=== PATIENT | male | born 1935 | race Caucasian/White ===

== ENCOUNTER 2016-12-17 14:47 | Observation (INO) ==
[2016-12-17] MEDS ORDERED: Bupivacaine/EPI 1:200k 0.5%PF 10 ML VIAL ONE ×2 (17:04→19:01)
[2016-12-17] MEDS ORDERED: Lidocaine/EPI 1:100k 1% 20 ML VIAL ONE (17:04)
[2016-12-17] MEDS ORDERED: Lidocaine 1% 20 ML MDV ONE (17:04)
--- NOTE | 2016-12-17 17:09 | Anesthesia Evaluation PreOp ---
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: Other (essential tremors) Other Medical History: Diabetes Type II Anesthesia History: No Prior Anesthetic Complications, Past Anesthesia Alcohol Use: none Drug use: none Medications and Allergies Aspirin [Adult Low Dose Aspirin EC] 81 mg PO DAILY 09/19/15 [History] Cyanocobalamin (Vitamin B-12) [Vitamin B-12] 1,000 mcg PO DAILY 09/19/15 [ History] Metformin [Glucophage] 500 mg PO BID 09/19/15 [History] Pravastatin Sodium [Pravachol] 40 mg PO HS 09/19/15 [History] Primidone [Mysoline] 100 mg PO BID 09/19/15 [History] Propranolol HCl [Innopran Xl] 120 mg PO DAILY 09/19/15 [History] Sertraline [Zoloft] 50 mg PO DAILY 09/19/15 [History] Carbidopa/Levodopa 25/100 [Sinemet 25/100] 1 tab PO TID 07/07/16 [History] Hydrocortisone [Proctozone-Hc] 1 appl RC BID PRN 07/07/16 [History] Allergies shellfish derived Allergy (Verified 12/17/16 15:51) Swelling of Lip/Tongue/Throat - Meds/Allergy Pre-op Review Medications Reviewed: Yes Allergies Reviewed: Yes Beta Blockers on Current Med List: Yes (for tremors) If Beta Blockers taken, Date/Time (Last Dose taken): 12/17/2016 at 0930 Anesthesia Results - Labs Laboratory Tests 07/07/16 07/09/16 07/09/16 10:35 05:49 05:49 WBC 6.8 Hgb Hct Plt Count 130 L PT 10.8 INR 1.0 Sodium 138 Potassium BUN 12 Creatinine 0.88 07/27/16 07/27/16 09:42 09:42 WBC Hgb 11.1 L Hct 33.2 L Plt Count PT INR Sodium Potassium 4.6 H BUN Creatinine - Imaging EKG: report reviewed (07/07/2016 SR) Anesthesia Exam Vital Signs/O2 Sat/Glucose, Most Recent Temp Pulse Resp BP Pulse Ox 97.7 F 60 16 184/83 94 12/17/16 15:45 12/17/16 15:45 12/17/16 15:45 12/17/16 15:45 12/17/16 15:45 Blood Glucose* 208 Height: 5'3''/ 1.6 m Weight: 195 lbs/88.451 kg NPO (# of Hours): 8 Pain Scale: 0 Pain Scale Used: Numeric (1 - 10) - HEENT Pupil (Motor): EOMI Mallampati: II Teeth: Edentulous Oral Opening: Greater than 3 - SWITCHMAN SUPERVISOR LOC: Oriented SWITCHMAN SUPERVISOR Motor: Normal RLE, Normal LLE, Normal Face, Deficit RUE (tremors), Deficit LUE (tremors,weakness) SWITCHMAN SUPERVISOR Sensory: Normal: RUE, RLE, LLE, Face, Deficit: LUE - Cardiac Rhythm: Regular Murmur: None - Pulmonary Breath Sounds: bilateral Clear Respiratory Effort: Symmetrical Anesthesia Assess/Plan ASA Score: 2 Modified [place] Scale for Level of Consciousness: Cooperative, oriented, and tranquil Anesthetic Plan: General Monitoring Plan: Standard Monitors Recovery Plan: PACU
[2016-12-17] MEDS ORDERED: EPHEDrine 50 MG/ML VIAL ONE (18:16)
[2016-12-17] MEDS ORDERED: Dexamethasone 4 MG/ML VIAL ONE (18:16)
[2016-12-17] MEDS ORDERED: Ondansetron 4 MG/2 ML VIAL ONE (18:16)
[2016-12-17] MEDS ORDERED: *HR* Succinylcholine 200 MG/10 ML VIAL IVP ONE (18:16)
[2016-12-17] MEDS ORDERED: *HR* Rocuronium Bromide 50 MG/5 ML VIAL ONE (18:16)
[2016-12-17] MEDS ORDERED: *HR* Propofol 200 MG/20 ML VIAL IVP ONE (18:16)
[2016-12-17] MEDS ORDERED: *HR* FentaNYL (PF) 100 MCG/2 ML VIAL ONE ×2 (18:16→18:17)
[2016-12-17] MEDS ORDERED: Lidocaine -MPF 2% 2 ML VIAL ONE (18:16)
[2016-12-17] MEDS ORDERED: *HR* Labetalol 100 MG/20 ML MDV IVP PRN (18:32)
[2016-12-17] MEDS ORDERED: Ondansetron 4 MG/2 ML VIAL IVP ONE (18:32)
[2016-12-17] MEDS ORDERED: *HR* HYDROmorphone (PF) 1 MG/ML SYRINGE IVP PRN ×2 (18:32→19:16)
[2016-12-17] MEDS ORDERED: Ringers Solution, Lactated 1,000 ML IVC SCH (18:45)
[2016-12-17] MEDS ORDERED: Naloxone 0.4 MG/ML INJ IVP PRN (19:16)
[2016-12-17] MEDS ORDERED: Ondansetron 4 MG/2 ML VIAL IVP PRN (19:16)
[2016-12-17] MEDS ORDERED: *HR* HYDROcodone/Acet 7.5/325 mg TABLET PO PRN (19:16)
--- NOTE | 2016-12-17 19:34 | Orthopedic Operative Note ---
Date of procedure: 12/17/16 Procedure: OPERATIVE REPORT DATE OF PROCEDURE: 12/17/2016 SURGEON: Brian Dowling MD PLANNING FEEDER(S): There were no assistants PREOPERATIVE DIAGNOSIS: Left transscaphoid perilunate dislocation with left carpal tunnel syndrome POSTOPERATIVE DIAGNOSIS: Left transscaphoid perilunate dislocation with left carpal tunnel syndrome PROCEDURE: Left proximal row carpectomy and left carpal tunnel release ANESTHESIA: General anesthesia PREOPERATIVE ANTIBIOTICS: 2 g of Ancef ESTIMATED BLOOD LOSS: 2 milliliters TOURNIQUET TIME: 60 minutes at 250 mmHg SPECIMENS: There were no specimens IMPLANTS: There were no implants LOCAL INJECTION: 0.5% bupivacaine with 1:200,000 epinephrine PREOPERATIVE NOTE AND INDICATIONS: Keyur is an 81-year-old male who sustained an injury 3 days ago which resulted in a left transscaphoid perilunate dislocation. He also had a history of 5-6 years of weakness and decreased dexterity in the left hand as well as thenar atrophy presumed to be related to chronic carpal tunnel syndrome. Treatment options in the office were discussed including reduction with scaphoid fixation versus acute proximal row carpectomy. After a thorough discussion the patient wished to proceed with the procedure that would provide the quickest recovery and the best likelihood of only needing one procedure. My recommendation was to proceed with a proximal row carpectomy and given the nature of the injury as well as what was felt to be a carpal tunnel syndrome the decision was made to proceed with carpal tunnel release as well. The surgical plan was discussed with the patient. The risks, benefits, alternatives, and potential complications of this procedure were discussed with the patient including injury to veins, arteries, nerves, tendons, ligaments, and bone. Also discussed were the risks of infection, bleeding, pain, blood clots, the possible need for a blood transfusion, the possible need for further procedures, heart attack, stroke, and . Also discussed was the risk of arthritis or chronic instability and the possible need to perform a fusion procedure in the future. All of this was explained in simple terms, and the patient verbalized understanding and wished to proceed. Consent was given to proceed with surgery. PROCEDURE: The patient was seen in the preoperative holding area where the identify and the consent were confirmed. The left wrist was marked. Final questions were answered. The patient was brought back to the operating room and placed supine on the operating room table. A huddle was performed with the patient and all vital surgical team members confirming patient identity, the correct procedure, and the correct operative site. Gen. anesthesia was administered. The left upper extremity was prepped and draped in the usual sterile fashion. A surgical time out was performed immediately preceding the incision with all personnel in the operating room to confirm patient identity, the correct operative site and extremity, correct radiographic studies, availability of appropriate surgical equipment, and agreement on the planned procedure. The C-arm was brought in and the dislocation was easily reducible under general anesthesia. The limb was exsanguinated and the tourniquet inflated. A volar incision was made and dissection proceeded through the subcutaneous tissue and palmar fascia. The transverse carpal ligament was identified and incised from distal to proximal including the last few centimeters of the distal antebrachial fascia. This did open wide after decompression. Attention was then directed dorsally where a dorsal longitudinal incision was made just ulnar to Hossein's tubercle. Dissection proceeded through the subcutaneous tissue and the interval between the second and fourth dorsal compartments was developed. The capsule was identified and sharply incised longitudinally exposing the wrist joint. The proximal scaphoid was identified and had no soft tissue attachments and was easily removed from the wound. The capitate cartilage was intact and in good condition. There was no arthritis on the distal portion of the distal radius. The ligamentous structures were then sharply elevated off the distal pole the scaphoid which was excised en bloc. The radioscaphocapitate ligament was felt to be intact. The lunate was identified and there was a complete lunotriquetral ligament rupture. The lunate was almost completely freely mobile with the exception of the radial lunate ligaments. The lunate was easily excised en bloc. Soft tissue was dissected off the triquetrum and this is also resected in 2 large fragments. The wound was copiously irrigated and the remaining cartilaginous surfaces of the radius and the capitate were in good condition. The capitate articulated nicely with the lunate facet of the radius. There was felt to be adequate stability. X- rays confirmed good reduction. The wounds were copiously irrigated and the dorsal capsular tissue was closed with interrupted 4-0 FiberWire stitches. The volar and dorsal incisions were closed with interrupted 4-0 nylon stitches. A total of 20 mL of the local was given to the incisions. A sterile dressing and sugar tong splint were placed. The instrument, sponge, and needle counts were correct after wound closure. POST OPERATIVE PLAN: Weight Bearing: Nonweightbearing to the left upper extremity. DVT Prophylaxis: Ambulation Activity: Avoid aggressive activities to the left upper extremity, Wound Care: Keep the splint clean, dry, and intact. Pain Control: [place] Follow Up: 10 days
--- NOTE | 2016-12-17 19:37 | Discharge Summary ---
Date of Encounter: 12/17/16 Time of Encounter: 19:34 - Discharge Diagnosis (1) Fracture of scaphoid bone of left wrist Priority: Primary Status: Acute Qualifiers: Qualified Code(s): S62.002A - Unspecified fracture of navicular [scaphoid] bone of left wrist, initial encounter for closed fracture - Discharge Medications Home Medications: Aspirin [Adult Low Dose Aspirin EC] 81 mg PO DAILY 09/19/15 [History] Cyanocobalamin (Vitamin B-12) [Vitamin B-12] 1,000 mcg PO DAILY 09/19/15 [ History] Metformin [Glucophage] 500 mg PO BID 09/19/15 [History] Pravastatin Sodium [Pravachol] 40 mg PO HS 09/19/15 [History] Primidone [Mysoline] 100 mg PO BID 09/19/15 [History] Propranolol HCl [Innopran Xl] 120 mg PO DAILY 09/19/15 [History] Sertraline [Zoloft] 50 mg PO DAILY 09/19/15 [History] Carbidopa/Levodopa 25/100 [Sinemet 25/100] 1 tab PO TID 07/07/16 [History] Hydrocortisone [Proctozone-Hc] 1 appl RC BID PRN 07/07/16 [History] Allergies/Adverse Reactions: Allergies shellfish derived Allergy (Verified 12/17/16 15:51) Swelling of Lip/Tongue/Throat Labs on day of discharge: Labs from last 24 hours 12/17/16 15:55 POC Glucose 208 H - Impressions ITS Impressions Fluoroscopy 12/17/16 17:55 IMPRESSION: Intraprocedural fluoroscopic spot images as above. See separate procedure report for more information. D/ / 12/17/2016 19:26:01 Chico Morin MD / linda Interpreting Provider: Chico Morin MD Wrist X-Ray 12/17/16 17:55 IMPRESSION: Intraprocedural fluoroscopic spot images as above. See separate procedure report for more information. D/ / 12/17/2016 19:26:01 Chico Morin MD / linda Interpreting Provider: Chico Morin MD Date of admission: 12/17/16 15:20 Primary care physician: Stoney Patel - Patient Status Disposition: Home, Self-Care - Discharge Instructions Follow Up With: Stoney Patel, DO [Primary Care Provider] - Additional Instructions: DISCHARGE INSTRUCTIONS Dr. Dowling DISCHARGE DIAGNOSIS/PROCEDURE Left proximal carpectomy and left carpal tunnel release PAIN AND SWELLING: The goal of pain medication is to reduce your pain and make you more comfortable. Pain medication may not completely relieve all discomfort. Control of swelling is an important part of pain control. To control swelling and pain: 1. Use a pillow to elevate the hand 10 to 14 inches above the heart level. 2. If your splint is positioned so that one or more of your fingers is free, then we encourage gentle movement of those fingers. If the splint blocks your motion, then we ask that you avoid motion of these fingers or hand. If the splint does not include the elbow, then we encourage you to bend and straighten your elbow 4 to 5 times per day to prevent stiffness. 3. Use ice packs over the affected area (on the soft side of the dressings is preferred - if there is one) for 10 minute intervals every hour while the hand is elevated. Be careful, however, to keep the dressing dry! 4. If you were given a sling, then wear the sling on when walking around for long periods of time. Otherwise, elevated as directed above. Continued use of the sling does not provide proper elevation of the extremity to prevent swelling. 5. The anesthesiologist may have given you a nerve block (an injection near your neck or shoulder) to numb your hand and arm. This is to help control your pain. Therefore, it is normal to experience some numbness and tingling in your arm and fingers up to approximately 18 hours after surgery. Your surgeon may have given a nerve block directly at the site of surgery which may also cause some numbness and tingling to the affected area. ACTIVITY: No aggressive activities with the left upper extremity WOUND CARE: Keep the wound clean, dry, and covered. The purpose of the dressing is to keep the surgical site protected and to promote healing. If you have a splint or a cast, it is designed to also help protect the surgical site. You may take a shower or bath with your dressing, splint, or cast in place, but you must keep it dry. One common way to do this is to place a bag over the area and seal with tape. If your dressing, splint, or cast becomes soaked, then phone our office as soon as possible. Unless otherwise instructed, do not remove your dressing or splint. There may be some bloody spotting on the dressing initially , and this is normal. Excessive bleeding that soaks the dressing must be reported to us. DRIVING: Do not drive while taking narcotic pain medications. DIET: Begin with clear liquids, and then increase your diet as you feel comfortable. MEDICATIONS: Pain: [place] Your prescribed pain medication contains Tylenol. You must be careful not to exceed 4,000 mg (4 g) of Tylenol (or generic equivalent), from all sources, within a single 24-hour period. Gradually wean to Tylenol (or generic equivalent) for pain. Over the counter ibuprofen can be taken as directed in addition to your prescribed pain medication unless otherwise stated by your doctor. DO NOT TAKE IBUPROFEN IF YOU HAVE A HISTORY OF STOMACH ULCERS OR ARE TAKING BLOOD THINNERS LIKE COUMADIN OR PLAVIX. FOLLOW-UP Follow-up with Dr. Dowling at the office 10 days from the surgery date for a post operative evaluation. Call the office at [phone] to schedule or confirm your appointment. WHEN TO CALL THE DOCTOR OR WHEN TO SEEK CARE BEFORE YOUR APPOINTMENT 1. Excess swelling or increased numbness not made better by elevating the hand and moving the fingers. 2. Uncontrolled pain. 3. A color change in your hand or fingers. 4. Worsening redness or drainage. 5. Fevers over 100.5 degrees F or 38.1 degrees C. 6. Any symptoms that bring concern to you. - Hospital Course Hospital course: Mr. De La Torre is a 81 year old male - Time Spent with Patient Total time spent providing and/or coordinating discharge services:
--- NOTE | 2016-12-17 20:05 | Anesthesia Evaluation Post Op ---
Date of Encounter: 12/17/16 Time of Encounter: 20:10 - Vital Signs Vital Signs: Vital Signs/O2 Sat/Glucose, Most Current Temp Pulse Resp BP Pulse Ox 12/17/16 19:50 98.9 F 75 18 200/95 97 12/17/16 19:40 62 20 216/97 97 12/17/16 19:30 62 18 204/101 96 12/17/16 19:20 99.6 F 60 18 191/107 94 - Lungs Lungs: Clear Ascult./Percussion - Airway Airway: Non-obstructed - Cardiovascular Regular Rate - Mental Status Mental Status: Alert & Oriented, Answers Appropriately - Pain Pain Scale: 0 - Nausea Vomiting Nausea Vomiting: Not Present - Hydration Hydration: NPO - Discharge PostOp Status: Transfer Patient to floor
[2016-12-17] MEDS ORDERED: Propranolol LA (24 HR) 60 MG CAP.SA.24H PO SCH (20:45)
[2016-12-17] MEDS ORDERED: Primidone 50 MG TABLET PO SCH (21:00)
[2016-12-17 23:15] VITALS: BP 163/80
== END 2016-12-17 23:20 | disposition home or self-care (01) ==
LOC: 3NENU
PROVIDERS: ADMIT Orthopaedic Surgery Hand Surgery; ATTEND Orthopaedic Surgery Hand Surgery

== ENCOUNTER 2019-11-09 09:40 | Inpatient (IN) ==
[2019-11-09] MEDS ORDERED: Azithromycin 500 MG in D5% in Water 250 ML IVPB ONE (10:01)
[2019-11-09] MEDS ORDERED: methylPREDNISolone 125 MG/2 ML VIAL IVP ONE (10:01)
[2019-11-09] MEDS ORDERED: cefTRIAXone 1,000 MG in Water for inj. (sterile) 10 ML IVP ONE (10:01)
[2019-11-09 10:17] LABS: Basophils # 0.1 K/mcL (0.0-0.2); Basophils % 0.4 %; Eosinophils % 0.2 %; Hematocrit 34.8 % (37.5-50.1); Hemoglobin 11.3 g/dL (12.9-16.9); Immature Granulocytes % 1.8 % (0-4); Lymphocytes # 1.5 K/mcL (0.6-4.6); Lymphocytes % 11.5 %; Mean Corpuscular HGB Conc 32.5 g/dL (31.6-35.5); Mean Corpuscular Hemoglobin 31.4 pg (28.0-33.3); Mean Corpuscular Volume 96.7 fL (83.0-100.0); Mean Platelet Volume 11.3 fL (9.4-12.4); Monocytes # 0.9 K/mcL (0.0-1.3); Monocytes % 6.5 %; Neutrophils # 10.4 K/mcL (1.6-8.9); Platelet Count 162 K/mcL (140-400); Red Cell Distribution Width 15.9 % (11.5-14.5); Segmented Neutrophils % 79.6 %; White Blood Count 13.1 K/mcL (4.3-11.1)
[2019-11-09 10:27] LABS: INR 2.2; Prothrombin Time 24.9 Seconds (9.4-12.1)
[2019-11-09 10:30] LABS: Activated Partial Thrombo Time 29.6 Seconds (26.0-36.0)
[2019-11-09 10:33] LABS: Alanine Aminotransferase 76 Units/L (7-52); Albumin 4.2 g/dL (3.5-5.7); Albumin/Globulin Ratio 1.5 (1.1-2.2); Alkaline Phosphatase 82 Units/L (34-104); Aspartate Amino Transferase 76 Units/L (13-39); BUN/Creatinine Ratio 18 (6-26); Bilirubin,Total 1.1 mg/dL (0.3-1.0); Blood Urea Nitrogen 18 mg/dL (8-23); Carbon Dioxide 23 mEq/L (23-29); Chloride 100 mEq/L (98-107); Globulin 2.8 g/dL (2.4-3.5); Glucose 363 mg/dL (70-105); Osmolality,Calculated 293 (280-300); Potassium 5.4 mEq/L (3.5-5.1); Sodium 133 mEq/L (136-145); eGFR For African Americans > 60 (> 60); eGFR For Non-African Americans > 60 (> 60)
[2019-11-09 10:43] LABS: Bilirubin,Urine Negative (Negative); Blood,Urine Trace (Negative); Clarity,Urine Cloudy (Clear); Color,Urine Yellow (Yellow); Glucose,Urine (UA) >=1000 mg/dL (Normal); Ketones,Urine 15 mg/dL (Negative); Leukocyte Esterase,Urine Negative (Negative); Nitrite,Urine Negative (Negative); Protein,Urine 100 mg/dL (Neg-Trace); Specific Gravity,Urine 1.028 (1.010-1.025); Urobilinogen,Urine Normal (Normal)
[2019-11-09 10:45] LABS: Bacteria,Urine None Seen per hpf (None-Few); Hyaline Casts,Urine Few per lpf (None-Few); RBC,Urine 0-3 per hpf (0-3); Squamous Epithelial Cell,Urine Many per lpf (None-Few); WBC,Urine 0-3 per hpf (0-3)
[2019-11-09 10:46] LABS: Troponin I 0.04 ng/mL (< 0.04)
[2019-11-09] MEDS ORDERED: Ipratropium/Albuterol Neb 3 ML IH ONE (10:56)
[2019-11-09] MEDS ORDERED: Naloxone 0.4 MG/ML INJ IVP PRN (11:39)
[2019-11-09] MEDS ORDERED: Ipratropium/Albuterol Neb 3 ML IH PRN (12:37)
[2019-11-09] MEDS: Propranolol LA (24 HR) 60 MG CAP.SA.24H PO SCH (13:23)
[2019-11-09] MEDS: Ipratropium/Albuterol Neb 3 ML IH SCH ×2 (15:26→22:09)
[2019-11-09 15:31] LABS: BUN/Creatinine Ratio 20 (6-26); Blood Urea Nitrogen 19 mg/dL (8-23); Calcium 9.1 mg/dL (8.6-10.3); Carbon Dioxide 23 mEq/L (23-29); Chloride 102 mEq/L (98-107); Glucose 371 mg/dL (70-105); Osmolality,Calculated 293 (280-300); Potassium 4.5 mEq/L (3.5-5.1); Sodium 133 mEq/L (136-145); eGFR For African Americans > 60 (> 60); eGFR For Non-African Americans > 60 (> 60)
[2019-11-09] MEDS: Insulin LISPRO 300 UNITS/3 ML VIAL SQ SCH (16:27)
[2019-11-09] MEDS: Carbidopa/Levodopa 25/100 TABLET PO SCH ×2 (16:27→20:23)
[2019-11-09] MEDS ORDERED: Ringers Solution, Lactated 1,000 ML IVC SCH (18:30)
[2019-11-09] MEDS ORDERED: Insulin LISPRO 300 UNITS/3 ML VIAL SQ SCH (21:00)
[2019-11-09] MEDS: MethylPREDNISolone 40 MG/ML VIAL IVP SCH (23:00)
[2019-11-09 23:51] LABS: Adenovirus Not Detected (Not Detect); Bordetella Pertussis Not Detected (Not Detect); Chlamydophila pneumoniae Not Detected (Not Detect); Coronavirus 229E Not Detected (Not Detect); Coronavirus HKU1 Not Detected (Not Detect); Coronavirus NL63 Not Detected (Not Detect); Coronavirus OC43 Not Detected (Not Detect); Human Metapneumovirus Not Detected (Not Detect); Human Rhinovirus/Enterovirus Not Detected (Not Detect); Influenza A Subtype 2009 H1 DETECTED (Not Detect); Influenza B Not Detected (Not Detect); Mycoplasma pneumoniae Not Detected (Not Detect); Parainfluenza Virus 1 Not Detected (Not Detect); Parainfluenza Virus 2 Not Detected (Not Detect); Parainfluenza Virus 3 Not Detected (Not Detect); Parainfluenza Virus 4 Not Detected (Not Detect); Respiratory Syncytial Virus Not Detected (Not Detect)
[2019-11-10] MEDS: Ipratropium/Albuterol Neb 3 ML IH SCH ×2 (03:45→10:25)
[2019-11-10 05:49] LABS: Basophils % 0.1 %; Hematocrit 31.9 % (37.5-50.1); Hemoglobin 10.7 g/dL (12.9-16.9); Immature Granulocytes % 1.1 % (0-4); Lymphocytes # 1.2 K/mcL (0.6-4.6); Lymphocytes % 13.8 %; Mean Corpuscular HGB Conc 33.5 g/dL (31.6-35.5); Mean Corpuscular Hemoglobin 32.2 pg (28.0-33.3); Mean Corpuscular Volume 96.1 fL (83.0-100.0); Mean Platelet Volume 11.5 fL (9.4-12.4); Monocytes # 0.4 K/mcL (0.0-1.3); Monocytes % 4.5 %; Neutrophils # 6.8 K/mcL (1.6-8.9); Platelet Count 119 K/mcL (140-400); Red Blood Count 3.32 M/mcL (4.19-5.50); Red Cell Distribution Width 15.9 % (11.5-14.5); Segmented Neutrophils % 80.5 %; White Blood Count 8.5 K/mcL (4.3-11.1)
[2019-11-10 05:52] LABS: Estimated Average Glucose 194 mg/dl
[2019-11-10 06:11] LABS: Alanine Aminotransferase 14 Units/L (7-52); Albumin 3.9 g/dL (3.5-5.7); Albumin/Globulin Ratio 1.4 (1.1-2.2); Alkaline Phosphatase 64 Units/L (34-104); Aspartate Amino Transferase 53 Units/L (13-39); BUN/Creatinine Ratio 26 (6-26); Bilirubin,Total 0.6 mg/dL (0.3-1.0); Blood Urea Nitrogen 21 mg/dL (8-23); Calcium 8.9 mg/dL (8.6-10.3); Carbon Dioxide 23 mEq/L (23-29); Chloride 103 mEq/L (98-107); Globulin 2.7 g/dL (2.4-3.5); Glucose 211 mg/dL (70-105); Osmolality,Calculated 289 (280-300); Potassium 4.4 mEq/L (3.5-5.1); Sodium 135 mEq/L (136-145); Total Protein 6.6 g/dL (6.4-8.9); eGFR For African Americans > 60 (> 60); eGFR For Non-African Americans > 60 (> 60)
[2019-11-10] MEDS ORDERED: Aspirin Enteric Coated 81 MG Tablet PO SCH (09:00)
[2019-11-10] MEDS ORDERED: cefTRIAXone 1,000 MG in Water for inj. (sterile) 10 ML IVP SCH (09:00)
[2019-11-10] MEDS: Carbidopa/Levodopa 25/100 TABLET PO SCH ×3 (09:06→21:59)
[2019-11-10] MEDS: Propranolol LA (24 HR) 60 MG CAP.SA.24H PO SCH (09:06)
[2019-11-10] MEDS: MethylPREDNISolone 40 MG/ML VIAL IVP SCH (09:09)
[2019-11-10] MEDS: Azithromycin 500 MG in D5% in Water 250 ML IVPB SCH (09:10)
[2019-11-10] MEDS: Insulin LISPRO 300 UNITS/3 ML VIAL SQ SCH ×3 (09:13→17:49)
[2019-11-10] MEDS ORDERED: D5% in Water 1,000 ML IVC PRN (12:16)
[2019-11-10] MEDS ORDERED: *HR* Dextrose 50 % in Water (Syg) 50 ML SYRINGE IVP PRN (12:16)
[2019-11-10] MEDS ORDERED: Dextrose Gel 15 GM/37.5 ML TUBE PO PRN ×2 (12:16)
[2019-11-10] MEDS: Insulin DETEMIR 100 UNIT/ML X5UNITS SQ SCH (13:07)
[2019-11-10 13:29] LABS: INR 1.7; Prothrombin Time 18.8 Seconds (9.4-12.1)
[2019-11-10] MEDS ORDERED: *HR* Warfarin 2.5 MG TABLET PO ONE (18:00)
[2019-11-10] MEDS ORDERED: Warfarin perPT PO PRN (18:00)
[2019-11-10] MEDS ORDERED: Insulin DETEMIR 100 UNIT/ML X5UNITS SQ ONE (18:08)
[2019-11-10] MEDS: Primidone 50 MG TABLET PO SCH (21:58)
[2019-11-11 05:34] LABS: INR 1.4; Prothrombin Time 15.9 Seconds (9.4-12.1)
[2019-11-11 05:46] LABS: Hemoglobin 11.2 g/dL (12.9-16.9); Red Cell Distribution Width 16.1 % (11.5-14.5)
[2019-11-11 05:48] LABS: Basophils % 0.2 %; Eosinophils % 0.4 %; Hematocrit 35.6 % (37.5-50.1); Immature Granulocytes % 0.9 % (0-4); Immature Platelets 9.2 % (1.1-6.1); Lymphocytes # 2.2 K/mcL (0.6-4.6); Lymphocytes % 22.3 %; Mean Corpuscular HGB Conc 31.5 g/dL (31.6-35.5); Mean Corpuscular Hemoglobin 30.8 pg (28.0-33.3); Mean Corpuscular Volume 97.8 fL (83.0-100.0); Mean Platelet Volume 11.7 fL (9.4-12.4); Monocytes # 0.7 K/mcL (0.0-1.3); Monocytes % 6.7 %; Neutrophils # 6.8 K/mcL (1.6-8.9); Platelet Count 138 K/mcL (140-400); Red Blood Count 3.64 M/mcL (4.19-5.50); Segmented Neutrophils % 69.5 %; White Blood Count 9.8 K/mcL (4.3-11.1)
[2019-11-11 06:00] LABS: BUN/Creatinine Ratio 31 (6-26); Blood Urea Nitrogen 27 mg/dL (8-23); Carbon Dioxide 23 mEq/L (23-29); Chloride 104 mEq/L (98-107); Glucose 97 mg/dL (70-105); Osmolality,Calculated 289 (280-300); Sodium 137 mEq/L (136-145); eGFR For African Americans > 60 (> 60); eGFR For Non-African Americans > 60 (> 60)
[2019-11-11] MEDS: Insulin LISPRO 300 UNITS/3 ML VIAL SQ SCH ×3 (07:26→16:38)
[2019-11-11] MEDS: predniSONE 20 MG TABLET PO SCH (07:50)
[2019-11-11] MEDS: Propranolol LA (24 HR) 60 MG CAP.SA.24H PO SCH (07:50)
[2019-11-11] MEDS: Primidone 50 MG TABLET PO SCH ×2 (07:50→19:33)
[2019-11-11] MEDS: Cyanocobalamin (B-12) 1,000 MCG TABLET PO SCH (07:51)
[2019-11-11] MEDS: Azithromycin 500 MG in D5% in Water 250 ML IVPB SCH (07:51)
[2019-11-11] MEDS: Aspirin Enteric Coated 81 MG Tablet PO SCH (07:51)
[2019-11-11] MEDS: Carbidopa/Levodopa 25/100 TABLET PO SCH ×3 (07:51→19:33)
[2019-11-11] MEDS: Multivit/Ca/Min/Fe/FA 1 TAB TABLET PO SCH (07:51)
[2019-11-11] MEDS: Insulin DETEMIR 100 UNIT/ML X5UNITS SQ SCH (09:44)
[2019-11-11] MEDS ORDERED: *HR* Warfarin 2.5 MG TABLET PO ONE (18:00)
[2019-11-12 08:48] LABS: Basophils % 0.3 %; Eosinophils # 0.1 K/mcL (0.0-0.6); Eosinophils % 0.8 %; Hematocrit 33.6 % (37.5-50.1); Hemoglobin 10.7 g/dL (12.9-16.9); Immature Granulocytes % 0.6 % (0-4); Lymphocytes # 2.1 K/mcL (0.6-4.6); Lymphocytes % 33.7 %; Mean Corpuscular HGB Conc 31.8 g/dL (31.6-35.5); Mean Corpuscular Hemoglobin 31.4 pg (28.0-33.3); Mean Corpuscular Volume 98.5 fL (83.0-100.0); Mean Platelet Volume 11.2 fL (9.4-12.4); Monocytes # 0.5 K/mcL (0.0-1.3); Monocytes % 8.7 %; Neutrophils # 3.5 K/mcL (1.6-8.9); Platelet Count 120 K/mcL (140-400); Red Blood Count 3.41 M/mcL (4.19-5.50); Red Cell Distribution Width 15.9 % (11.5-14.5); Segmented Neutrophils % 55.9 %; White Blood Count 6.2 K/mcL (4.3-11.1)
[2019-11-12 08:58] LABS: INR 1.4; Prothrombin Time 16.2 Seconds (9.4-12.1)
[2019-11-12] MEDS ORDERED: Azithromycin 250 MG TABLET PO SCH (09:00)
[2019-11-12 09:07] LABS: BUN/Creatinine Ratio 28 (6-26); Blood Urea Nitrogen 29 mg/dL (8-23); Calcium 8.4 mg/dL (8.6-10.3); Carbon Dioxide 26 mEq/L (23-29); Chloride 104 mEq/L (98-107); Glucose 162 mg/dL (70-105); Magnesium 1.9 mg/dL (1.6-2.6); Osmolality,Calculated 293 (280-300); Sodium 137 mEq/L (136-145); eGFR For African Americans > 60 (> 60); eGFR For Non-African Americans > 60 (> 60)
[2019-11-12] MEDS: Propranolol LA (24 HR) 60 MG CAP.SA.24H PO SCH (09:29)
[2019-11-12] MEDS: Primidone 50 MG TABLET PO SCH (09:29)
[2019-11-12] MEDS: Multivit/Ca/Min/Fe/FA 1 TAB TABLET PO SCH (09:29)
[2019-11-12] MEDS: Aspirin Enteric Coated 81 MG Tablet PO SCH (09:29)
[2019-11-12] MEDS: predniSONE 20 MG TABLET PO SCH (09:30)
[2019-11-12] MEDS: Carbidopa/Levodopa 25/100 TABLET PO SCH (09:30)
[2019-11-12] MEDS: Cyanocobalamin (B-12) 1,000 MCG TABLET PO SCH (09:30)
[2019-11-12] MEDS: Insulin LISPRO 300 UNITS/3 ML VIAL SQ SCH ×2 (09:31→12:36)
[2019-11-12] MEDS: Insulin DETEMIR 100 UNIT/ML X5UNITS SQ SCH (09:36)
[2019-11-12 09:41] VITALS: BP 137/92
[2019-11-12] MEDS ORDERED: *HR* Warfarin 2.5 MG TABLET PO ONE (18:00)
== END 2019-11-12 15:50 | disposition home or self-care (01) | DRG 871 ==
LOC: 2ANU 09:40 → EMEROOARM 09:40 → SUATTDRO 11:39 → 2ANU 12:48
PROVIDERS: ADMIT Internal Medicine; ATTEND Pharmacist

== ENCOUNTER 2019-12-08 17:39 | Observation (INO) ==
[2019-12-08 18:30] LABS: Basophils % 0.4 %; Eosinophils # 0.1 K/mcL (0.0-0.6); Eosinophils % 1.5 %; Hematocrit 24.6 % (37.5-50.1); Immature Granulocytes % 1.4 % (0-4); Lymphocytes # 2.5 K/mcL (0.6-4.6); Lymphocytes % 31.9 %; Mean Corpuscular HGB Conc 32.5 g/dL (31.6-35.5); Mean Corpuscular Hemoglobin 31.1 pg (28.0-33.3); Mean Corpuscular Volume 95.7 fL (83.0-100.0); Mean Platelet Volume 11.2 fL (9.4-12.4); Monocytes # 0.6 K/mcL (0.0-1.3); Monocytes % 8.1 %; Neutrophils # 4.5 K/mcL (1.6-8.9); Nucleated Red Blood Cells 0.5 /100 WBC (0); Platelet Count 169 K/mcL (140-400); Red Blood Count 2.57 M/mcL (4.19-5.50); Red Cell Distribution Width 15.7 % (11.5-14.5); Segmented Neutrophils % 56.7 %; White Blood Count 7.9 K/mcL (4.3-11.1)
[2019-12-08 18:37] LABS: Activated Partial Thrombo Time 50.8 Seconds (26.0-36.0)
[2019-12-08 18:40] LABS: Alanine Aminotransferase 16 Units/L (7-52); Albumin 3.8 g/dL (3.5-5.7); Albumin/Globulin Ratio 1.4 (1.1-2.2); Alkaline Phosphatase 85 Units/L (34-104); Aspartate Amino Transferase 17 Units/L (13-39); BUN/Creatinine Ratio 18 (6-26); Blood Urea Nitrogen 20 mg/dL (8-23); Calcium 8.8 mg/dL (8.6-10.3); Carbon Dioxide 25 mEq/L (23-29); Chloride 101 mEq/L (98-107); Globulin 2.7 g/dL (2.4-3.5); Glucose 392 mg/dL (70-105); Osmolality,Calculated 299 (280-300); Potassium 4.9 mEq/L (3.5-5.1); Sodium 135 mEq/L (136-145); Total Protein 6.5 g/dL (6.4-8.9); eGFR For African Americans > 60 (> 60); eGFR For Non-African Americans > 60 (> 60)
[2019-12-08 18:46] LABS: INR 7.9; Prothrombin Time 90.1 Seconds (9.4-12.1)
[2019-12-08] MEDS ORDERED: Isovue-370 500 ML BOTTLE IVP ONE (19:27)
[2019-12-08] MEDS ORDERED: *HR* Phytonadione 5 MG TABLET PO ONE (20:31)
[2019-12-08 20:58] LABS: Troponin I < 0.03 ng/mL (< 0.04)
[2019-12-08 21:09] LABS: Bilirubin,Urine Negative (Negative); Blood,Urine Large (Negative); Clarity,Urine Cloudy (Clear); Color,Urine Red (Yellow); Glucose,Urine (UA) >=1000 mg/dL (Normal); Ketones,Urine Negative (Negative); Leukocyte Esterase,Urine Trace (Negative); Nitrite,Urine Negative (Negative); Protein,Urine >=300 mg/dL (Neg-Trace); Specific Gravity,Urine > 1.030 (1.010-1.025); Urobilinogen,Urine Normal (Normal)
[2019-12-08 21:11] LABS: Bacteria,Urine Present per hpf (None-Few); RBC,Urine TNTC per hpf (0-3); WBC,Urine Present per hpf (0-3)
[2019-12-08] MEDS ORDERED: D5% in Water 1,000 ML IVC PRN (23:08)
[2019-12-08] MEDS ORDERED: *HR* Dextrose 50 % in Water (Syg) 50 ML SYRINGE IVP PRN (23:08)
[2019-12-08] MEDS ORDERED: Dextrose Gel 15 GM/37.5 ML TUBE PO PRN ×2 (23:08)
[2019-12-09] MEDS: Insulin LISPRO 300 UNITS/3 ML VIAL SQ SCH ×6 (00:19→22:08)
[2019-12-09] MEDS ORDERED: Naloxone 0.4 MG/ML INJ IVP PRN (01:04)
[2019-12-09 03:20] LABS: Basophils % 0.3 %; Eosinophils # 0.2 K/mcL (0.0-0.6); Eosinophils % 2.6 %; Hematocrit 20.7 % (37.5-50.1); Hemoglobin 6.7 g/dL (12.9-16.9); Immature Granulocytes % 1.3 % (0-4); Lymphocytes # 2.6 K/mcL (0.6-4.6); Lymphocytes % 42.7 %; Mean Corpuscular HGB Conc 32.4 g/dL (31.6-35.5); Mean Corpuscular Hemoglobin 31.5 pg (28.0-33.3); Mean Corpuscular Volume 97.2 fL (83.0-100.0); Mean Platelet Volume 10.9 fL (9.4-12.4); Monocytes # 0.5 K/mcL (0.0-1.3); Monocytes % 8.9 %; Neutrophils # 2.7 K/mcL (1.6-8.9); Nucleated Red Blood Cells 0.3 /100 WBC (0); Platelet Count 140 K/mcL (140-400); Red Blood Count 2.13 M/mcL (4.19-5.50); Red Cell Distribution Width 15.9 % (11.5-14.5); Segmented Neutrophils % 44.2 %; White Blood Count 6.1 K/mcL (4.3-11.1)
[2019-12-09 03:29] LABS: INR 7.5; Prothrombin Time 84.9 Seconds (9.4-12.1)
[2019-12-09 03:40] LABS: BUN/Creatinine Ratio 18 (6-26); Blood Urea Nitrogen 18 mg/dL (8-23); Calcium 8.5 mg/dL (8.6-10.3); Carbon Dioxide 25 mEq/L (23-29); Chloride 105 mEq/L (98-107); Glucose 190 mg/dL (70-105); Osmolality,Calculated 297 (280-300); Potassium 3.8 mEq/L (3.5-5.1); Sodium 140 mEq/L (136-145); eGFR For African Americans > 60 (> 60); eGFR For Non-African Americans > 60 (> 60)
[2019-12-09] MEDS ORDERED: 0.9 % Sodium Chloride 250 ML ONE ×2 (08:44→13:29)
[2019-12-09] MEDS ORDERED: Ipratropium/Albuterol Neb 3 ML IH PRN (11:49)
[2019-12-09] MEDS ORDERED: *HR* Phytonadione 10 MG/ML AMPUL SQ ONE (11:55)
[2019-12-09 18:31] LABS: Hematocrit 28.2 % (37.5-50.1)
[2019-12-09 18:33] LABS: Hemoglobin 9.1 g/dL (12.9-16.9)
[2019-12-09 18:35] LABS: Prothrombin Time 20.5 Seconds (9.4-12.1)
[2019-12-09 18:36] LABS: INR 1.8
[2019-12-09] MEDS ORDERED: Insulin DETEMIR 100 UNIT/ML X5UNITS SQ SCH (21:00)
[2019-12-09] MEDS: Primidone 50 MG TABLET PO SCH (22:12)
[2019-12-09] MEDS: Budesonide Neb 0.5 MG/2 ML IH SCH (22:37)
[2019-12-10 03:17] LABS: Basophils % 0.4 %; Eosinophils # 0.2 K/mcL (0.0-0.6); Eosinophils % 3.4 %; Hematocrit 25.1 % (37.5-50.1); Hemoglobin 8.2 g/dL (12.9-16.9); Immature Granulocytes % 1.1 % (0-4); Lymphocytes # 2.4 K/mcL (0.6-4.6); Lymphocytes % 42.5 %; Mean Corpuscular HGB Conc 32.7 g/dL (31.6-35.5); Mean Corpuscular Hemoglobin 30.9 pg (28.0-33.3); Mean Corpuscular Volume 94.7 fL (83.0-100.0); Mean Platelet Volume 10.5 fL (9.4-12.4); Monocytes # 0.5 K/mcL (0.0-1.3); Neutrophils # 2.5 K/mcL (1.6-8.9); Nucleated Red Blood Cells 0.4 /100 WBC (0); Platelet Count 139 K/mcL (140-400); Red Blood Count 2.65 M/mcL (4.19-5.50); Red Cell Distribution Width 16.1 % (11.5-14.5); Segmented Neutrophils % 44.6 %; White Blood Count 5.7 K/mcL (4.3-11.1)
[2019-12-10] MEDS: Primidone 50 MG TABLET PO SCH (08:14)
[2019-12-10] MEDS: Insulin LISPRO 300 UNITS/3 ML VIAL SQ SCH ×2 (08:14→12:02)
[2019-12-10 09:00] LABS: INR 1.5; Prothrombin Time 16.6 Seconds (9.4-12.1)
[2019-12-10] MEDS ORDERED: Cyanocobalamin (B-12) 1,000 MCG TABLET PO SCH (09:00)
[2019-12-10] MEDS ORDERED: Propranolol LA (24 HR) 60 MG CAP.SA.24H PO SCH (09:00)
[2019-12-10] MEDS: Budesonide Neb 0.5 MG/2 ML IH SCH (09:37)
[2019-12-10 14:39] VITALS: BP 139/59
[2019-12-10] MEDS ORDERED: Insulin DETEMIR 100 UNIT/ML X5UNITS SQ SCH (21:00)
== END 2019-12-10 15:52 ==
LOC: EMEROOARM 17:39 → 3ANU 17:39 → SUATTDRO 21:07 → 3ANU 21:35
PROVIDERS: ADMIT Internal Medicine; ATTEND Internal Medicine

== ENCOUNTER 2020-05-31 15:17 | Inpatient (IN) ==
[2020-05-31] MEDS ORDERED: Ipratropium/Albuterol Neb 3 ML IH ONE (15:59)
[2020-05-31 16:33] LABS: INR 1.8; Prothrombin Time 20.6 Seconds (9.4-12.1)
[2020-05-31 16:34] LABS: Basophils % 0.3 %; Eosinophils # 0.1 K/mcL (0.0-0.6); Eosinophils % 1.1 %; Hematocrit 34.6 % (37.5-50.1); Hemoglobin 10.5 g/dL (12.9-16.9); Immature Granulocytes % 2.5 % (0-4); Lymphocytes # 0.9 K/mcL (0.6-4.6); Lymphocytes % 13.1 %; Mean Corpuscular HGB Conc 30.3 g/dL (31.6-35.5); Mean Corpuscular Hemoglobin 31.4 pg (28.0-33.3); Mean Corpuscular Volume 103.6 fL (83.0-100.0); Mean Platelet Volume 12.1 fL (9.4-12.4); Monocytes # 0.6 K/mcL (0.0-1.3); Monocytes % 8.3 %; Neutrophils # 5.3 K/mcL (1.6-8.9); Platelet Count 108 K/mcL (140-400); Red Blood Count 3.34 M/mcL (4.19-5.50); Red Cell Distribution Width 17.3 % (11.5-14.5); Segmented Neutrophils % 74.7 %; White Blood Count 7.1 K/mcL (4.3-11.1)
[2020-05-31 16:47] LABS: BUN/Creatinine Ratio 18 (6-26); Blood Urea Nitrogen 16 mg/dL (8-23); Calcium 8.7 mg/dL (8.6-10.3); Carbon Dioxide 27 mEq/L (23-29); Chloride 102 mEq/L (98-107); Glucose 283 mg/dL (70-105); Osmolality,Calculated 297 (280-300); Potassium 4.2 mEq/L (3.5-5.1); Sodium 138 mEq/L (136-145); Troponin I < 0.03 ng/mL (< 0.04); eGFR For African Americans > 60 (> 60); eGFR For Non-African Americans > 60 (> 60)
[2020-05-31] MEDS ORDERED: Furosemide 40 MG/4 ML VIAL IVP ONE (18:06)
[2020-05-31] MEDS ORDERED: Naloxone 0.4 MG/ML INJ IVP PRN (20:44)
[2020-05-31] MEDS ORDERED: Perflutren Lipid Microsphere 1.3 ML in 0.9 % Sodium Chloride 8.7 ML IVP PRN (20:48)
[2020-05-31] MEDS ORDERED: *HR* Dextrose 50 % in Water (Vial) 50 ML VIAL IVP PRN (20:50)
[2020-05-31] MEDS ORDERED: Dextrose Gel 15 GM/37.5 ML TUBE PO PRN ×2 (20:50)
[2020-05-31] MEDS ORDERED: D5% in Water 1,000 ML IVC PRN (20:50)
[2020-05-31] MEDS ORDERED: *HR* Warfarin 2.5 MG TABLET PO ONE (21:30)
[2020-06-01] MEDS: Insulin LISPRO 300 UNITS/3 ML VIAL SQ SCH ×5 (00:14→21:01)
[2020-06-01 01:22] LABS: Hematocrit 33.4 % (37.5-50.1); Hemoglobin 10.3 g/dL (12.9-16.9); Mean Corpuscular HGB Conc 30.8 g/dL (31.6-35.5); Mean Corpuscular Hemoglobin 31.3 pg (28.0-33.3); Mean Corpuscular Volume 101.5 fL (83.0-100.0); Mean Platelet Volume 11.9 fL (9.4-12.4); Platelet Count 101 K/mcL (140-400); Red Blood Count 3.29 M/mcL (4.19-5.50); Red Cell Distribution Width 17.3 % (11.5-14.5); White Blood Count 5.8 K/mcL (4.3-11.1)
[2020-06-01 01:42] LABS: Alanine Aminotransferase 22 Units/L (7-52); Albumin/Globulin Ratio 1.4 (1.1-2.2); Alkaline Phosphatase 73 Units/L (34-104); Aspartate Amino Transferase 18 Units/L (13-39); BUN/Creatinine Ratio 18 (6-26); Blood Urea Nitrogen 15 mg/dL (8-23); Calcium 9.1 mg/dL (8.6-10.3); Carbon Dioxide 29 mEq/L (23-29); Chloride 103 mEq/L (98-107); Globulin 2.9 g/dL (2.4-3.5); Glucose 197 mg/dL (70-105); Magnesium 1.7 mg/dL (1.6-2.6); Osmolality,Calculated 298 (280-300); Phosphorous 3.3 mg/dL (2.7-4.5); Potassium 3.8 mEq/L (3.5-5.1); Sodium 141 mEq/L (136-145); Total Protein 6.9 g/dL (6.4-8.9); eGFR For African Americans > 60 (> 60); eGFR For Non-African Americans > 60 (> 60)
[2020-06-01] MEDS ORDERED: Furosemide 40 MG/4 ML VIAL IVP SCH (09:00)
[2020-06-01] MEDS: Insulin DETEMIR 100 UNIT/ML X5UNITS SQ SCH ×2 (10:20→21:02)
[2020-06-01] MEDS: Furosemide 40 MG/4 ML VIAL IVP SCH ×2 (10:20→21:00)
[2020-06-01] MEDS: Propranolol LA (24 HR) 60 MG CAP.SA.24H PO SCH (10:20)
[2020-06-01] MEDS ORDERED: Ipratropium/Albuterol Neb 3 ML IH PRN (14:09)
[2020-06-01] MEDS ORDERED: Acetaminophen 325 MG TABLET PO PRN (15:03)
[2020-06-01] MEDS: Piperacillin/Tazobactam 3.375 GM in 0.9 % Sodium Chloride Mini Bag 100 ML IVPB SCH ×2 (17:38→23:57)
[2020-06-01] MEDS ORDERED: *HR* Warfarin 2.5 MG TABLET PO ONE (18:00)
[2020-06-01] MEDS ORDERED: Warfarin perPT PO PRN (20:47)
[2020-06-01] MEDS: Primidone 50 MG TABLET PO SCH (21:00)
[2020-06-02 00:15] LABS: Bilirubin,Urine Negative (Negative); Blood,Urine Negative (Negative); Clarity,Urine Clear (Clear); Color,Urine Colorless (Yellow); Glucose,Urine (UA) Normal (Normal); Ketones,Urine Negative (Negative); Leukocyte Esterase,Urine Negative (Negative); Nitrite,Urine Negative (Negative); PH,Urine 7.5 pH Units (5.0-8.0); Protein,Urine Negative (Neg-Trace); Specific Gravity,Urine 1.007 (1.010-1.025); Urobilinogen,Urine Normal (Normal)
[2020-06-02 06:58] LABS: Prothrombin Time 22.6 Seconds (9.4-12.1)
[2020-06-02] MEDS: Insulin LISPRO 300 UNITS/3 ML VIAL SQ SCH ×4 (08:41→21:24)
[2020-06-02] MEDS: Propranolol LA (24 HR) 60 MG CAP.SA.24H PO SCH (08:51)
[2020-06-02] MEDS: Furosemide 40 MG/4 ML VIAL IVP SCH ×2 (08:51→21:23)
[2020-06-02] MEDS: Piperacillin/Tazobactam 3.375 GM in 0.9 % Sodium Chloride Mini Bag 100 ML IVPB SCH ×2 (08:51→16:45)
[2020-06-02] MEDS: Primidone 50 MG TABLET PO SCH ×2 (08:51→21:22)
[2020-06-02] MEDS: Cyanocobalamin (B-12) 1,000 MCG TABLET PO SCH (08:52)
[2020-06-02] MEDS: Insulin DETEMIR 100 UNIT/ML X5UNITS SQ SCH ×2 (08:56→21:23)
[2020-06-02] MEDS ORDERED: *HR* Warfarin 2.5 MG TABLET PO ONE (18:00)
[2020-06-03 01:09] LABS: INR 2.1
[2020-06-03] MEDS: Insulin LISPRO 300 UNITS/3 ML VIAL SQ SCH ×4 (08:12→20:34)
[2020-06-03 09:17] LABS: BUN/Creatinine Ratio 16 (6-26); Blood Urea Nitrogen 20 mg/dL (8-23); Calcium 8.8 mg/dL (8.6-10.3); Carbon Dioxide 31 mEq/L (23-29); Chloride 99 mEq/L (98-107); Glucose 116 mg/dL (70-105); Magnesium 1.7 mg/dL (1.6-2.6); Osmolality,Calculated 292 (280-300); Phosphorous 5.2 mg/dL (2.7-4.5); Potassium 3.6 mEq/L (3.5-5.1); Sodium 139 mEq/L (136-145); eGFR For African Americans > 60 (> 60); eGFR For Non-African Americans 53 (> 60)
[2020-06-03] MEDS: Primidone 50 MG TABLET PO SCH ×2 (10:00→20:35)
[2020-06-03] MEDS: Propranolol LA (24 HR) 60 MG CAP.SA.24H PO SCH (10:00)
[2020-06-03] MEDS: Piperacillin/Tazobactam 3.375 GM in 0.9 % Sodium Chloride Mini Bag 100 ML IVPB SCH ×2 (10:01)
[2020-06-03] MEDS: Furosemide 40 MG/4 ML VIAL IVP SCH (10:02)
[2020-06-03] MEDS: Cyanocobalamin (B-12) 1,000 MCG TABLET PO SCH (10:07)
[2020-06-03] MEDS: Insulin DETEMIR 100 UNIT/ML X5UNITS SQ SCH ×2 (10:24→20:35)
[2020-06-03] MEDS ORDERED: *HR* Warfarin 1 MG TABLET PO ONE (18:00)
[2020-06-04] MEDS: Propranolol LA (24 HR) 60 MG CAP.SA.24H PO SCH (07:42)
[2020-06-04] MEDS: Cyanocobalamin (B-12) 1,000 MCG TABLET PO SCH (07:43)
[2020-06-04] MEDS: Primidone 50 MG TABLET PO SCH ×2 (07:43→21:50)
[2020-06-04] MEDS: Furosemide 40 MG/4 ML VIAL IVP SCH (07:44)
[2020-06-04] MEDS: Insulin LISPRO 300 UNITS/3 ML VIAL SQ SCH ×4 (08:02→21:50)
[2020-06-04] MEDS: Insulin DETEMIR 100 UNIT/ML X5UNITS SQ SCH ×2 (08:02→21:49)
[2020-06-04] MEDS ORDERED: *HR* Warfarin 2.5 MG TABLET PO ONE (18:00)
[2020-06-05 05:02] LABS: INR 1.8; Prothrombin Time 20.2 Seconds (9.4-12.1)
[2020-06-05 05:16] LABS: BUN/Creatinine Ratio 25 (6-26); Blood Urea Nitrogen 28 mg/dL (8-23); Carbon Dioxide 30 mEq/L (23-29); Chloride 105 mEq/L (98-107); Glucose 81 mg/dL (70-105); Magnesium 1.8 mg/dL (1.6-2.6); Osmolality,Calculated 299 (280-300); Phosphorous 3.3 mg/dL (2.7-4.5); Potassium 3.7 mEq/L (3.5-5.1); Sodium 142 mEq/L (136-145); eGFR For African Americans > 60 (> 60); eGFR For Non-African Americans > 60 (> 60)
[2020-06-05] MEDS: Insulin LISPRO 300 UNITS/3 ML VIAL SQ SCH ×4 (07:51→20:24)
[2020-06-05] MEDS: Furosemide 40 MG/4 ML VIAL IVP SCH (08:59)
[2020-06-05] MEDS: Cyanocobalamin (B-12) 1,000 MCG TABLET PO SCH (08:59)
[2020-06-05] MEDS: Propranolol LA (24 HR) 60 MG CAP.SA.24H PO SCH (08:59)
[2020-06-05] MEDS: Primidone 50 MG TABLET PO SCH ×2 (09:02→19:31)
[2020-06-05] MEDS: Insulin DETEMIR 100 UNIT/ML X5UNITS SQ SCH (09:02)
[2020-06-05] MEDS ORDERED: *HR* Warfarin 2.5 MG TABLET PO ONE (18:00)
[2020-06-06 06:05] LABS: INR 1.8; Prothrombin Time 20.1 Seconds (9.4-12.1)
[2020-06-06] MEDS: Primidone 50 MG TABLET PO SCH (07:50)
[2020-06-06] MEDS: Propranolol LA (24 HR) 60 MG CAP.SA.24H PO SCH (07:50)
[2020-06-06] MEDS: Cyanocobalamin (B-12) 1,000 MCG TABLET PO SCH (07:50)
[2020-06-06] MEDS: Insulin LISPRO 300 UNITS/3 ML VIAL SQ SCH ×2 (07:51→13:34)
[2020-06-06] MEDS ORDERED: Furosemide 40 MG TABLET PO SCH (09:00)
[2020-06-06 10:19] VITALS: BP 103/64
[2020-06-06] MEDS ORDERED: *HR* Warfarin 3 MG TABLET PO ONE (18:00)
== END 2020-06-06 15:30 | DRG 291 ==
LOC: 3ANU 15:17 → EMEROOARM 15:17 → SUATTDRO 18:35 → 3ANU 19:48
PROVIDERS: ADMIT Internal Medicine; ATTEND Internal Medicine